=== PATIENT | male | born 1980 | race Two or more races ===

== ENCOUNTER 2017-09-17 22:05 | Inpatient (IN) | payer MEDICAID, OTHER ==
[~2017-09-17] VITALS: Ht 172.7 cm; Wt 81.4 kg
[~2017-09-17 22:05] MED LIST: CEPH-376 PO; HYDR-882 PO
[2017-09-17] MEDS ORDERED: OMNIPAQUE 350 MG/ML, 100ML BOTTLE ONE (22:45)
[2017-09-17 22:52] LABS: BASOPHILS # (AUTO) 0.02 x10^3/uL (0-0.1); BASOPHILS % (AUTO) 0 % (0-1); EOSINOPHILS # (AUTO) 0.02 x10^3/uL (0-0.4); EOSINOPHILS % (AUTO) 0 % (1-7); LYMPHOCYTES # (AUTO) 1.57 x10^3/uL (1-3.4); LYMPHOCYTES % (AUTO) 18 % (22-44); MD NO; MEAN CORPUSCULAR HEMOGLOBIN 30.7 pg (27.5-34.5); MEAN CORPUSCULAR HGB CONC 34.3 g/dL (33.2-36.2); MEAN CORPUSCULAR VOLUME 89.6 fL (81-97); MEAN PLATELET VOLUME 7.9 fL (7.4-10.4); MONOCYTES # (AUTO) 0.47 x10^3/uL (0.2-0.8); MONOCYTES % (AUTO) 6 % (2-9); NEUTROPHILS # (AUTO) 6.59 x10^3/uL (1.8-6.8); NEUTROPHILS % (AUTO) 76 % (42-75); PLATELET COUNT 266 x10^3/uL (130-400); RED BLOOD COUNT 4.93 x10^6/uL (4.38-5.82); RED CELL DISTRIBUTION WIDTH 11.7 % (9.4-14.8)
[2017-09-17 22:57] LABS: MICROSCOPIC NOT IND
[2017-09-17 23:05] LABS: ALANINE AMINOTRANSFERASE 21 U/L (12-78); ANION GAP 9 mmol/L (5-15); CALCIUM 8.8 mg/dL (8.5-10.1); CHLORIDE 105 mmol/L (98-107); CREATININE 1.21 mg/dL (0.7-1.3)
[2017-09-17 23:07] LABS: ALKALINE PHOSPHATASE 59 U/L (45-117); BILIRUBIN,TOTAL 0.9 mg/dL (0.2-1.0); TOTAL PROTEIN 7.7 g/dL (6.4-8.2)
[2017-09-17 23:12] LABS: CULTURE INDICATED? NO
[2017-09-18] MEDS ORDERED: PROPOFOL 10 MG/ML, 20ML ONE ×2 (01:42→02:14)
[2017-09-18] MEDS ORDERED: FENTANYL PF 250 MCG/5ML ONE (01:43)
[2017-09-18] MEDS ORDERED: ROCURONIUM 10MG/ML,5ML ONE (01:45)
[2017-09-18] MEDS ORDERED: ONDANSETRON 2MG/ML, 2ML IVPush PRN (02:00)
[2017-09-18] MEDS ORDERED: HYDROmorphone 1 MG/ML, 1ML IV PRN (02:00)
[2017-09-18] MEDS ORDERED: MEPERIDINE/PF 25MG/0.5ML IVPush PRN (02:00)
[2017-09-18] MEDS ORDERED: LABETALOL 5MG/ML, 20ML IV PRN (02:00)
[2017-09-18] MEDS ORDERED: hydrALAzine 20 MG/ML, 1ML IV PRN (02:00)
[2017-09-18] MEDS ORDERED: PROMETHAZINE 12.5 MG SUPP PR PRN (02:00)
[2017-09-18] MEDS ORDERED: OXYcodone 5 MG/5 ML ORAL.SOL UDC PO PRN (02:00)
[2017-09-18] MEDS ORDERED: CEFOTETAN 2 GM ONE (02:01)
[2017-09-18] MEDS ORDERED: SUCCINYLCHOLINE 20 MG/ML, 10ML ONE (02:01)
[2017-09-18] MEDS ORDERED: METOCLOPRAMIDE 5 MG/ML, 2ML ONE (02:01)
[2017-09-18] MEDS ORDERED: DEXAMETHASONE 4 MG/ML, 1ML ONE (02:14)
[2017-09-18] MEDS ORDERED: KETOROLAC 30 MG/1 ML ONE (02:56)
[2017-09-18] MEDS ORDERED: FENTANYL PF 100 MCG/2ML ONE (03:09)
[2017-09-18] MEDS ORDERED: MIDAZOLAM 1 MG/ML, 2ML ONE (03:09)
[2017-09-18] MEDS ORDERED: OXYcodone 5 MG/5 ML ORAL.SOL UDC ONE (03:10)
[2017-09-18] MEDS: FENTANYL PF 100 MCG/2ML IV PRN ×2 (03:20→03:33)
[2017-09-18] MEDS ORDERED: MORPHINE SULFATE 4 MG/ML, 1ML ONE (03:47)
[2017-09-18] MEDS: morphine SULFATE 10 MG/ML, 1ML IV PRN ×2 (03:53→04:01)
[2017-09-18] MEDS: D5%-0.9% NACL+KCL 20MEQ 1,000 ML IV SCH ×2 (05:29→14:12)
[2017-09-18] MEDS: FAMOTIDINE 20 MG/2 ML IVPush SCH ×2 (05:29→16:33)
[2017-09-18] MEDS ORDERED: ONDANSETRON 2MG/ML, 2ML IV PRN (05:30)
[2017-09-18] MEDS ORDERED: SODIUM CHLORIDE 0.9% 1,000ML IVBOLUS PRN (05:30)
[2017-09-18 08:49] VITALS: BP 99/66
[2017-09-18 12:07] VITALS: BP 100/69
[2017-09-18 22:33] VITALS: BP 108/61
[2017-09-19] MEDS: MORPHINE SULFATE 4 MG/ML, 1ML IV PRN ×7 (00:12→22:09)
[2017-09-19] MEDS: D5%-0.9% NACL+KCL 20MEQ 1,000 ML IV SCH ×2 (00:13→11:13)
[2017-09-19 03:55] VITALS: BP 110/71
[2017-09-19] MEDS: FAMOTIDINE 20 MG/2 ML IVPush SCH (04:41)
[2017-09-19 08:21] VITALS: BP 110/74
[2017-09-19] MEDS: ONDANSETRON ODT 4 MG PO PRN (10:18)
[2017-09-19 14:40] VITALS: BP 113/78
[2017-09-19 19:42] VITALS: BP 124/77
[2017-09-19] MEDS: FAMOTIDINE 20 MG TABLET PO SCH (22:09)
[2017-09-19 23:19] VITALS: BP 134/87
[2017-09-20] MEDS: MORPHINE SULFATE 4 MG/ML, 1ML IV PRN ×3 (00:39→08:32)
[2017-09-20 02:55] VITALS: BP 115/79
[2017-09-20 05:09] LABS: BASOPHILS # (AUTO) 0.02 x10^3/uL (0-0.1); BASOPHILS % (AUTO) 0 % (0-1); EOSINOPHILS # (AUTO) 0.02 x10^3/uL (0-0.4); EOSINOPHILS % (AUTO) 0 % (1-7); LYMPHOCYTES # (AUTO) 1.26 x10^3/uL (1-3.4); LYMPHOCYTES % (AUTO) 11 % (22-44); MD NO; MEAN CORPUSCULAR HEMOGLOBIN 30.8 pg (27.5-34.5); MEAN CORPUSCULAR VOLUME 90.6 fL (81-97); MEAN PLATELET VOLUME 8.3 fL (7.4-10.4); MONOCYTES # (AUTO) 0.85 x10^3/uL (0.2-0.8); MONOCYTES % (AUTO) 8 % (2-9); NEUTROPHILS # (AUTO) 8.89 x10^3/uL (1.8-6.8); NEUTROPHILS % (AUTO) 81 % (42-75); PLATELET COUNT 255 x10^3/uL (130-400)
[2017-09-20 05:20] LABS: CHLORIDE 98 mmol/L (98-107)
[2017-09-20 05:29] LABS: ANION GAP 7 mmol/L (5-15); CALCIUM 8.4 mg/dL (8.5-10.1); CREATININE 0.99 mg/dL (0.7-1.3)
[2017-09-20] MEDS: D5%-0.9% NACL+KCL 20MEQ 1,000 ML IV SCH ×4 (05:30→22:40)
[2017-09-20] MEDS ORDERED: D5%-0.9% NACL+KCL 20MEQ 1,000 ML IV SCH (05:30)
[2017-09-20 06:33] VITALS: BP 120/80
[2017-09-20] MEDS: FAMOTIDINE 20 MG TABLET PO SCH ×2 (09:15→22:49)
[2017-09-20 13:24] VITALS: BP 124/86
[2017-09-20] MEDS ORDERED: BISACODYL 10 MG SUPP PR ONE (14:30)
[2017-09-20] MEDS ORDERED: MORPHINE SULFATE 4 MG/ML, 1ML IV PRN (14:30)
[2017-09-20] MEDS: OXYcodone/APAP 5/325MG TABLET PO PRN (19:09)
[2017-09-20 20:45] VITALS: BP 107/69
[2017-09-20] MEDS ORDERED: PROMETHAZINE 25 MG SUPP PR PRN (22:00)
[2017-09-21] MEDS: OXYcodone/APAP 5/325MG TABLET PO PRN ×4 (00:15→22:05)
[2017-09-21 02:49] VITALS: BP 113/73
[2017-09-21] MEDS: BISACODYL 10 MG SUPP PR PRN (04:13)
[2017-09-21 05:33] LABS: BASOPHILS # (AUTO) 0.01 x10^3/uL (0-0.1); BASOPHILS % (AUTO) 0 % (0-1); EOSINOPHILS # (AUTO) 0.06 x10^3/uL (0-0.4); EOSINOPHILS % (AUTO) 1 % (1-7); LYMPHOCYTES # (AUTO) 0.86 x10^3/uL (1-3.4); LYMPHOCYTES % (AUTO) 11 % (22-44); MD NO; MEAN CORPUSCULAR HGB CONC 34.6 g/dL (33.2-36.2); MEAN CORPUSCULAR VOLUME 89.4 fL (81-97); MEAN PLATELET VOLUME 8.2 fL (7.4-10.4); MONOCYTES # (AUTO) 0.65 x10^3/uL (0.2-0.8); MONOCYTES % (AUTO) 8 % (2-9); NEUTROPHILS # (AUTO) 6.17 x10^3/uL (1.8-6.8); NEUTROPHILS % (AUTO) 80 % (42-75); PLATELET COUNT 240 x10^3/uL (130-400); RED BLOOD COUNT 4.93 x10^6/uL (4.38-5.82)
[2017-09-21 05:40] LABS: CHLORIDE 102 mmol/L (98-107)
[2017-09-21 05:49] LABS: ANION GAP 6 mmol/L (5-15); CALCIUM 8.8 mg/dL (8.5-10.1); CREATININE 0.86 mg/dL (0.7-1.3)
[2017-09-21 06:26] VITALS: BP 113/77
[2017-09-21] MEDS: FAMOTIDINE 20 MG TABLET PO SCH ×2 (09:02→22:05)
[2017-09-21] MEDS: D5%-0.9% NACL+KCL 20MEQ 1,000 ML IV SCH ×2 (09:02→16:28)
[2017-09-21] MEDS: METOCLOPRAMIDE 5 MG/ML, 2ML IV SCH ×2 (09:03→16:06)
[2017-09-21 13:43] VITALS: BP 109/74
[2017-09-21 19:30] VITALS: BP 119/67
[2017-09-21] MEDS: ENOXAPARIN 30 MG/0.3 ML SQ SCH (22:05)
[2017-09-22] MEDS: D5%-0.9% NACL+KCL 20MEQ 1,000 ML IV SCH ×5 (00:17→20:32)
[2017-09-22] MEDS: METOCLOPRAMIDE 5 MG/ML, 2ML IV SCH ×3 (00:18→16:11)
[2017-09-22] MEDS: OXYcodone/APAP 5/325MG TABLET PO PRN ×3 (02:01→11:47)
[2017-09-22 02:06] VITALS: BP 109/70
[2017-09-22 07:03] VITALS: BP 107/66
[2017-09-22] MEDS: BISACODYL 10 MG SUPP PR PRN (08:27)
[2017-09-22] MEDS: FAMOTIDINE 20 MG TABLET PO SCH ×2 (08:33→20:32)
[2017-09-22] MEDS: ENOXAPARIN 30 MG/0.3 ML SQ SCH ×2 (08:36→20:33)
[2017-09-22 12:55] VITALS: BP 103/70
[2017-09-22] MEDS ORDERED: OXYcodone/APAP 5/325MG TABLET PO PRN (13:00)
[2017-09-22] MEDS: KETOROLAC 30 MG/1 ML IV SCH ×2 (13:24→20:32)
[2017-09-22 19:12] VITALS: BP 118/68
[2017-09-22] MEDS: ONDANSETRON ODT 4 MG PO PRN (19:23)
[2017-09-23] MEDS: METOCLOPRAMIDE 5 MG/ML, 2ML IV SCH ×3 (00:56→16:23)
[2017-09-23 02:17] VITALS: BP 120/70
[2017-09-23] MEDS: KETOROLAC 30 MG/1 ML IV SCH ×3 (05:36→21:13)
[2017-09-23] MEDS: D5%-0.9% NACL+KCL 20MEQ 1,000 ML IV SCH (06:00)
[2017-09-23 06:11] LABS: BASOPHILS # (AUTO) 0.01 x10^3/uL (0-0.1); BASOPHILS % (AUTO) 0 % (0-1); EOSINOPHILS % (AUTO) 0 % (1-7); LYMPHOCYTES # (AUTO) 0.37 x10^3/uL (1-3.4); LYMPHOCYTES % (AUTO) 9 % (22-44); MD NO; MEAN CORPUSCULAR HEMOGLOBIN 30.4 pg (27.5-34.5); MEAN CORPUSCULAR HGB CONC 34.1 g/dL (33.2-36.2); MEAN CORPUSCULAR VOLUME 89.2 fL (81-97); MEAN PLATELET VOLUME 7.6 fL (7.4-10.4); MONOCYTES # (AUTO) 0.35 x10^3/uL (0.2-0.8); MONOCYTES % (AUTO) 9 % (2-9); NEUTROPHILS # (AUTO) 3.38 x10^3/uL (1.8-6.8); NEUTROPHILS % (AUTO) 82 % (42-75); PLATELET COUNT 216 x10^3/uL (130-400); RED BLOOD COUNT 4.39 x10^6/uL (4.38-5.82); RED CELL DISTRIBUTION WIDTH 11.4 % (9.4-14.8)
[2017-09-23 06:21] LABS: ANION GAP 7 mmol/L (5-15); CALCIUM 8.4 mg/dL (8.5-10.1); CHLORIDE 103 mmol/L (98-107); CREATININE 1.09 mg/dL (0.7-1.3)
[2017-09-23 06:28] VITALS: BP 111/73
[2017-09-23] MEDS: ENOXAPARIN 30 MG/0.3 ML SQ SCH ×2 (08:20→21:13)
[2017-09-23] MEDS ORDERED: FAMOTIDINE 20 MG/2 ML IV SCH (09:00)
[2017-09-23] MEDS ORDERED: LIDOCAINE-MPF 1%, 5ML ONE (09:01)
[2017-09-23 10:41] LABS: PREALBUMIN 8.4 mg/dL (20.0-40.0)
[2017-09-23] MEDS ORDERED: POTASSIUM PHOSPHATE 22 MEQ in SODIUM CHLORIDE 0.9% 500 ML IV ONE (13:00)
[2017-09-23 13:42] VITALS: BP 96/52
[2017-09-23] MEDS ORDERED: FAT EMULSIONS IV SCH (17:00)
[2017-09-23] MEDS ORDERED: D5%-0.9% NACL 1,000 ML IV SCH (17:00)
[2017-09-23] MEDS ORDERED: FILTER, DISP 1.2 MICRON FOR TPN/PVN IV PRN (17:00)
[2017-09-23] MEDS ORDERED: AMINO ACID 10% IV SCH (17:00)
[2017-09-23] MEDS ORDERED: DEXTROSE 70% IV SCH (17:00)
[2017-09-23] MEDS ORDERED: DEXTROSE 50%, 50ML SYRINGE IVPush PRN (17:00)
[2017-09-23] MEDS ORDERED: DEXTROSE 10% 500 ML IV PRN (17:00)
[2017-09-23] MEDS ORDERED: TPN PER PHARMACY MC PRN (17:00)
[2017-09-23] MEDS ORDERED: [UNRECOGNIZED DRUG - OTHER] IV SCH (17:00)
[2017-09-23 19:39] VITALS: BP 102/62
[2017-09-23] MEDS: INSULIN REGULAR MEDIUM DOSE Q6H X 48HRS SQ-INSULIN SCH (21:00)
[2017-09-24] MEDS: METOCLOPRAMIDE 5 MG/ML, 2ML IV SCH ×3 (00:15→17:27)
[2017-09-24 00:19] VITALS: BP 107/73
[2017-09-24] MEDS: INSULIN REGULAR MEDIUM DOSE Q6H X 48HRS SQ-INSULIN SCH ×4 (03:07→21:00)
[2017-09-24] MEDS: KETOROLAC 30 MG/1 ML IV SCH ×3 (05:17→21:25)
[2017-09-24 06:16] LABS: BASOPHILS # (AUTO) 0.01 x10^3/uL (0-0.1); BASOPHILS % (AUTO) 0 % (0-1); EOSINOPHILS # (AUTO) 1.41 x10^3/uL (0-0.4); EOSINOPHILS % (AUTO) 33 % (1-7); LYMPHOCYTES # (AUTO) 0.49 x10^3/uL (1-3.4); LYMPHOCYTES % (AUTO) 12 % (22-44); MD NO; MEAN CORPUSCULAR HEMOGLOBIN 29.9 pg (27.5-34.5); MEAN CORPUSCULAR HGB CONC 33.7 g/dL (33.2-36.2); MEAN CORPUSCULAR VOLUME 88.8 fL (81-97); MEAN PLATELET VOLUME 8.2 fL (7.4-10.4); MONOCYTES % (AUTO) 7 % (2-9); NEUTROPHILS # (AUTO) 2.01 x10^3/uL (1.8-6.8); NEUTROPHILS % (AUTO) 48 % (42-75); PLATELET COUNT 200 x10^3/uL (130-400); RED BLOOD COUNT 4.53 x10^6/uL (4.38-5.82); RED CELL DISTRIBUTION WIDTH 11.7 % (9.4-14.8)
[2017-09-24 06:28] LABS: ANION GAP 9 mmol/L (5-15); CALCIUM 7.7 mg/dL (8.5-10.1); CHLORIDE 100 mmol/L (98-107); CREATININE 0.88 mg/dL (0.7-1.3)
[2017-09-24 08:22] LABS: CLOSTRIDIUM DIFFICILE ANTIGEN NEGATIVE; CLOSTRIDIUM DIFFICILE TOXIN NEGATIVE (Negative)
[2017-09-24 08:35] VITALS: BP 124/80
[2017-09-24] MEDS: ENOXAPARIN 30 MG/0.3 ML SQ SCH ×2 (09:21→21:25)
[2017-09-24 13:36] VITALS: BP 114/70
[2017-09-24] MEDS ORDERED: AMINO ACID 10% IV SCH (17:00)
[2017-09-24] MEDS ORDERED: FAT EMULSIONS IV SCH (17:00)
[2017-09-24] MEDS ORDERED: DEXTROSE 70% IV SCH (17:00)
[2017-09-24] MEDS ORDERED: FILTER, DISP 1.2 MICRON FOR TPN/PVN IV PRN (17:00)
[2017-09-24] MEDS ORDERED: [UNRECOGNIZED DRUG - OTHER] IV SCH (17:00)
[2017-09-24 19:57] VITALS: BP 118/75
[2017-09-25] MEDS: METOCLOPRAMIDE 5 MG/ML, 2ML IV SCH ×2 (00:56→08:17)
[2017-09-25 01:21] VITALS: BP 110/62
[2017-09-25] MEDS: INSULIN REGULAR MEDIUM DOSE Q6H X 48HRS SQ-INSULIN SCH ×3 (03:45→15:01)
[2017-09-25] MEDS: KETOROLAC 30 MG/1 ML IV SCH ×3 (05:07→20:36)
[2017-09-25 05:45] LABS: CHLORIDE 105 mmol/L (98-107)
[2017-09-25 05:55] LABS: ANION GAP 7 mmol/L (5-15); CALCIUM 8.3 mg/dL (8.5-10.1); CREATININE 0.76 mg/dL (0.7-1.3)
[2017-09-25] MEDS: ENOXAPARIN 30 MG/0.3 ML SQ SCH ×2 (08:18→20:37)
[2017-09-25 08:28] VITALS: BP 117/74
[2017-09-25 14:39] VITALS: BP 108/67
[2017-09-25] MEDS ORDERED: [UNRECOGNIZED DRUG - OTHER] IV SCH (17:00)
[2017-09-25] MEDS ORDERED: DEXTROSE 70% IV SCH (17:00)
[2017-09-25] MEDS ORDERED: FAT EMULSIONS IV SCH (17:00)
[2017-09-25] MEDS ORDERED: AMINO ACID 10% IV SCH (17:00)
[2017-09-25 20:03] VITALS: BP 103/60
[2017-09-26 00:48] VITALS: BP 116/74
[2017-09-26] MEDS: KETOROLAC 30 MG/1 ML IV SCH ×3 (04:51→19:53)
[2017-09-26 05:23] LABS: ANION GAP 7 mmol/L (5-15); CALCIUM 8.6 mg/dL (8.5-10.1); CHLORIDE 107 mmol/L (98-107)
[2017-09-26 05:26] LABS: CREATININE 0.72 mg/dL (0.7-1.3)
[2017-09-26 07:06] VITALS: BP 116/73
[2017-09-26] MEDS ORDERED: INSULIN REGULAR MEDIUM DOSE QDAY SQ-INSULIN SCH (09:00)
[2017-09-26] MEDS: ENOXAPARIN 30 MG/0.3 ML SQ SCH ×2 (09:37→19:53)
[2017-09-26 12:45] VITALS: BP 117/69
[2017-09-26 19:21] VITALS: BP 107/59
[2017-09-27 02:22] VITALS: BP 118/67
[2017-09-27] MEDS: KETOROLAC 30 MG/1 ML IV SCH (05:00)
[2017-09-27 06:11] LABS: BASOPHILS % (AUTO) 0 % (0-1); EOSINOPHILS # (AUTO) 0.11 x10^3/uL (0-0.4); EOSINOPHILS % (AUTO) 2 % (1-7); LYMPHOCYTES # (AUTO) 1.39 x10^3/uL (1-3.4); LYMPHOCYTES % (AUTO) 23 % (22-44); MD NO; MEAN CORPUSCULAR HEMOGLOBIN 30.1 pg (27.5-34.5); MEAN CORPUSCULAR VOLUME 88.6 fL (81-97); MONOCYTES # (AUTO) 0.57 x10^3/uL (0.2-0.8); MONOCYTES % (AUTO) 10 % (2-9); NEUTROPHILS # (AUTO) 3.86 x10^3/uL (1.8-6.8); NEUTROPHILS % (AUTO) 65 % (42-75); PLATELET COUNT 247 x10^3/uL (130-400); RED BLOOD COUNT 4.56 x10^6/uL (4.38-5.82); RED CELL DISTRIBUTION WIDTH 12.1 % (9.4-14.8)
[2017-09-27 06:56] LABS: ANION GAP 6 mmol/L (5-15); CALCIUM 8.7 mg/dL (8.5-10.1); CHLORIDE 107 mmol/L (98-107); CREATININE 0.75 mg/dL (0.7-1.3)
[2017-09-27 07:14] VITALS: BP 127/67
[2017-09-27] MEDS: ENOXAPARIN 30 MG/0.3 ML SQ SCH (08:34)
[2017-09-27 13:42] VITALS: BP 126/74
[2017-09-27 16:50] VITALS: BP 112/69
[2017-09-27] MEDS ORDERED: OXYC-302 PO (16:52)
== END 2017-09-27 17:38 | disposition home or self-care (01) | DRG 358 ==
LOC: ED 23:00 → EDIP 09-18 01:09 → 4NOR 09-18 04:15
PROVIDERS: ADMIT Surgery; ATTEND Surgery
PROC: 0WJP0ZZ Inspection of Gastrointestinal Tract, Open Approach (ICD-10-PCS; 2017-09-18)
PROC: 07BB0ZX Excision of Mesenteric Lymphatic, Open Approach, Diagnostic (ICD-10-PCS; principal; 2017-09-18 02:00)
PROC: 3E0436Z Introduction of Nutritional Substance into Central Vein, Percutaneous Approach (ICD-10-PCS; 2017-09-23)
PROC: 02HV33Z Insertion of Infusion Device into Superior Vena Cava, Percutaneous Approach (ICD-10-PCS; 2017-09-23)
PROC: B5181ZA Fluoroscopy of Superior Vena Cava using Low Osmolar Contrast, Guidance (ICD-10-PCS; 2017-09-23)
DX: K56.1 Intussusception (principal); E86.0 Dehydration; R59.1 Generalized enlarged lymph nodes; F12.90 Cannabis use, unspecified, uncomplicated; Z72.0 Tobacco use; K56.7 Ileus, unspecified
CPT/HCPCS: 36415; 36569; 74018; 74021; 74177; 76937; 77001; 80048; 80053; 81003; 82962; 83690; 83735; 84100; 84134; 84478; 85025; 87324; 88305; 96374; 96375; J0610; J1100; J1650; J1885; J2704; J3010; J3475; Q0162; Q9967; C1751; J0330; J2270; J2765; J3480; J7030; J7040; S0028; S0074

== ENCOUNTER 2017-10-09 04:41 | Emergency (ER) | payer MEDICAID ==
[~2017-10-09] VITALS: Ht 172.7 cm; Wt 78.0 kg
[~2017-10-09 04:41] MED LIST changes: +OXYC-302 PO
[2017-10-09 06:08] VITALS: BP 99/63
== END 2017-10-09 07:49 | disposition home or self-care (01) ==
LOC: ED 05:08
DX: R10.84 Generalized abdominal pain (principal)
CPT/HCPCS: 74021; 99284